=== PATIENT | male | born 1945 | race Caucasian/White ===

== ENCOUNTER 2018-04-14 12:14 | Emergency (ER) | payer OTHER ==
[~2018-04-14 12:14] MED LIST: B-COTAB18 PO; CRS/10 PO; FURO-85 PO; GLC/500 PO; MULT-845 PO; PRLSR20 PO; TAMS0.4C59 PO; TIZA4CAP PO; TRAM-10 PO; TRAZ50TA35 PO
[2018-04-14] MEDS ORDERED: LIDOCAINE/EPINEPHRINE 1% 20 ML VIAL ONE (12:21)
[2018-04-14] MEDS ORDERED: CHOL200027 PO (13:00)
[2018-04-14] MEDS ORDERED: ROPI0.25 PO (13:00)
[2018-04-14] MEDS ORDERED: RANI300T2 PO (13:00)
[2018-04-14] MEDS ORDERED: LISI-730 PO (13:00)
[2018-04-14] MEDS ORDERED: EMPA1TAB PO (13:00)
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
--- NOTE | 2018-04-14 14:24 | EMERGENCY ROOM VISIT NOTE ---
ED Visit Note First contact with patient: 12:21 Patient seen and examined at bedside after discussion with physician internal medicine physician assistant. Please refer to his note for additional details. Patient with a laceration noted to the left frontoparietal region, repaired by the PA at bedside. No persistent bleeding, wound well approximated and well appearing after repair. Patient denies any dizziness or since being off balance, denies nausea vomiting , vision changes, states only a mild headache in the area of the laceration. Discussed with patient symptoms watch and return for, follow-up with family doctor, wound care, he verbalized understanding was agreeable with plan. I do not suspect any additional occult traumatic injury otherwise.
[2018-04-14] MEDS ORDERED: BACITRACIN OINT 15 GM TUBE ONE (14:33)
[2018-04-14 14:41] VITALS: BP 105/64; PULSE 85; O2SAT 98
== END 2018-04-14 14:40 | disposition home or self-care (01) ==
LOC: C.EDB 12:15 → C.EDD 14:40
DX: S01.01XA Laceration without foreign body of scalp, initial encounter (principal); W45.8XXA Other foreign body or object entering through skin, initial encounter; I10 Essential (primary) hypertension; F32.9 Major depressive disorder, single episode, unspecified; E11.9 Type 2 diabetes mellitus without complications; E78.5 Hyperlipidemia, unspecified; Z91.011 Allergy to milk products; Z91.012 Allergy to eggs; Z88.8 Allergy status to other drugs, medicaments and biological substances